=== PATIENT | male | born 1945 | race Caucasian/White ===

== ENCOUNTER → 2016-09-05 | Outpatient (CLI) | payer MEDICARE ==
[2016-09-05 11:31] LABS: CH 31.8; CHCM 32.5; HDW 3.05; HGB 17.2 gm/dL (13.0-17.5); MCH 32.7 pg (25.0-35.0); MCHC 33.1 g/dL (31.0-37.0); MCV 98.6 fL (80.0-100.0); Mean Platelet Volume 8.2; RBC 5.28 m/uL (4.30-5.90); RDW 13.5 % (11.5-15.5); WBC 9.5 k/uL (3.8-10.6)
[2016-09-05 12:14] LABS: Anion Gap 14 mmol/L; Blood Urea Nitrogen 15 mg/dL (9-20); Calcium 9.2 mg/dL (8.4-10.2); Carbon Dioxide 21 mmol/L (22-30); Chloride 106 mmol/L (98-107); Glucose 119 mg/dL (74-99); Non-African American GFR(MDRD) >60 (>60 ml/min/1.73 sqM); Potassium 4.5 mmol/L (3.5-5.1); Sodium 141 mmol/L (137-145)
== END | disposition home or self-care (01) ==
LOC: LABWHC1 10:54
PROVIDERS: ATTEND Internal Medicine Interventional Cardiology
DX: D69.6 Thrombocytopenia, unspecified (principal)
CPT/HCPCS: 36415; 80048; 85027

== ENCOUNTER 2016-09-12 06:24 | Inpatient (IN) | payer MEDICARE ==
[~2016-09-12 06:24] MED LIST: ALPRAZolam 0.25 MG TAB PO PRN; ALPRAZolam 0.5 MG TAB PO PRN; ASPIRIN 325 MG TAB PO STA; ATORVASTATIN 80 MG TAB PO STA; NITROGLYCERIN SL TABS 0.4 MG TAB SUBLINGUAL PRN; SODIUM CHLORIDE 0.9% 1,000 ML in EMPTY BAG 1 BAG IV ONE
[2016-09-12] MEDS ORDERED: IV FLUID CONTINUATION 1,000 ML IV ONE (07:27)
[2016-09-12] MEDS ORDERED: LIDOCAINE 2% INJ 20 MG/ML (20 ML MDV) ONE (07:30)
[2016-09-12] MEDS ORDERED: MIDAZOLAM 2 MG/2 ML VIAL ONE (07:46)
[2016-09-12] MEDS ORDERED: MIDAZOLAM 2 MG/2 ML VIAL IV ONE (07:48)
[2016-09-12] MEDS ORDERED: LIDOCAINE 2% INJ 20 MG/ML SQ ONE (07:50)
[2016-09-12] MEDS ORDERED: METOPROLOL TARTRATE 5 MG/5 ML VIAL IVP ONE ×2 (07:58→08:01)
[2016-09-12] MEDS ORDERED: IOHEXOL 350 MG/ML 100 ML BOTTLE INJ ONE (08:19)
[2016-09-12] MEDS ORDERED: RX INFO: IV CONTRAST WAS GIVEN 1 EACH MISC MISCELLANE PRN (08:33)
[2016-09-12] MEDS ORDERED: SODIUM CHLORIDE 0.9% 1,000 ML IV SCH (08:45)
[2016-09-12] MEDS ORDERED: DEXTROSE 5% IN WATER 100 ML with AMIODARONE 150 MG IV ONE (10:28)
[2016-09-12] MEDS: APIXABAN 5 MG TAB PO SCH ×2 (10:58→20:42)
[2016-09-12] MEDS: FUROSEMIDE 10 MG/ML 4 ML VIAL IV SCH ×2 (10:58→20:42)
[2016-09-12] MEDS: AMIODARONE 450 MG in DEXTROSE 5% IN WATER 250 ML IV SCH ×4 (11:20→17:22)
[2016-09-12] MEDS: LISINOPRIL 5 MG TAB PO SCH (13:25)
--- NOTE | 2016-09-12 13:31 | CC ---
DATE OF SERVICE: September 12, 2016. PERFORMING PHYSICIAN: Karan Underwood M.D., 7th grade teacher. PROCEDURE PERFORMED: 1. Right heart catheterization. 2. Left heart catheterization. 3. Selective right and left coronary angiogram. INDICATION: This is a pleasant 70-year-old gentleman who was experiencing progressive dyspnea and progressive bilateral lower extremity edema. He underwent an echocardiogram as an outpatient and that showed severe cardiomyopathy with an ejection fraction around 20%. He was brought today to undergo a right and left heart catheterization. APPROACH: Right common femoral artery and right common femoral vein. COMPLICATIONS: None. Level of sedation: Moderate. PROCEDURE DESCRIPTION: After obtaining an informed consent, the patient was brought to the cardiac lab director. The right common femoral vein as well as right common femoral artery was cannulated using micropuncture technique, the micropuncture wire passed easily, then I placed a 6 Urdu sheath in the right common femoral artery. An 8 Urdu sheath in the right common femoral vein. After that I did right heart catheterization using a 6 Urdu [place] catheter, which was placed in the venous sheath and advanced all the way to the right chamber including the pulmonary artery as well as pulmonary capillary wedge position. Subsequently I did selective right and left coronary angiogram followed by left heart catheterization. The right and left coronary angiogram was performed using 6 Urdu JR4 and JL4 catheters. The left heart catheterization was performed using ( ) pigtail catheter. The procedure was completed without any complication. SELECTIVE CORONARY ANGIOGRAM: 1. The right coronary artery is a medium caliber vessel and it is a nondominant vessel and has mild disease in the proximal portion. 2. The left main is angiographically normal. It bifurcates into the left circumflex and left anterior descending artery. 3. The left circumflex is a large-caliber vessel and it is a dominant vessel. The proximal left circumflex appeared to have mild disease only and gives rises into the first OM branch, which appeared to be angiographically normally. The mid left circumflex is normal. The left circumflex distally is angiographically normal and bifurcates into PDA and PLV branches; both are angiographically normal. 4. Left anterior descending artery. The proximal LAD appeared to be calcified with mild disease only. The mid LAD appeared to have a plaque in the range of 30%. This is by the bifurcation of the first diagonal branch, which appeared to have mild ostial disease. The LAD distally appeared to be angiographically normal. HEMODYNAMICS: 1. The pulmonary capillary wedge pressure was 27 mmHg. 2. PA pressures were as follows: systolic 37, diastolic 27, mean 33 mmHg. 3. RV pressure were as follows: systolic 31 and end-diastolic of 16 mmHg. 4. RA pressure was 19 mmHg. CONCLUSION: 1. Elevated pulmonary capillary wedge pressure. 2. Elevated left ventricular end-diastolic pressure. 3. Mild nonobstructive coronary artery disease. POSTPROCEDURE MANAGEMENT: 1. Maximize medical treatment. 2. Follow up with the patient.
[2016-09-13] MEDS: AMIODARONE 450 MG in DEXTROSE 5% IN WATER 250 ML IV SCH ×4 (01:32→10:19)
[2016-09-13 07:29] LABS: Anion Gap 13 mmol/L; Blood Urea Nitrogen 34 mg/dL (9-20); Calcium 8.9 mg/dL (8.4-10.2); Carbon Dioxide 23 mmol/L (22-30); Chloride 101 mmol/L (98-107); Glucose 99 mg/dL (74-99); Non-African American GFR(MDRD) >60 (>60 ml/min/1.73 sqM); Potassium 4.4 mmol/L (3.5-5.1); Sodium 137 mmol/L (137-145)
[2016-09-13] MEDS: LISINOPRIL 5 MG TAB PO SCH (09:56)
[2016-09-13] MEDS: APIXABAN 5 MG TAB PO SCH ×2 (09:56→20:32)
[2016-09-13] MEDS: FUROSEMIDE 10 MG/ML 4 ML VIAL IV SCH ×2 (09:56→17:10)
[2016-09-13] MEDS ORDERED: METOPROLOL TARTRATE 25 MG TAB PO SCH (11:30)
[2016-09-13] MEDS ORDERED: AMIODARONE 200 MG TAB PO SCH (11:30)
[2016-09-13 14:34] VITALS: BMI 36.0
--- NOTE | 2016-09-13 16:22 | P.PN ---
Subjective Principal diagnosis: Cardiomyopathy/CHF/atrial fibrillation This is a 70-year-old gentleman who follows with Dr. Mercado in the office. Patient had been noticing progressive bilateral lower extremity edema over the past few weeks and had also been experiencing exertional dyspnea and orthopnea. He underwent an echocardiogram with Doppler study as an outpatient which revealed severe cardiac myopathy with an ejection fraction of 20%. He was brought to the hospital by Dr. Mercado to undergo cardiac catheterization which was performed yesterday. Cardiac catheterization revealed nonobstructive coronary artery disease, decision was made to maximize medical therapy. Patient was admitted to the floor, started on IV Lasix, he was also initiated on IV amiodarone. Currently the patient is on amiodarone 200 mg one tablet by mouth 3 times a day, Eliquis 5 mg one tablet by mouth twice a day, lisinopril 5 mg daily, metoprolol tartrate 25 mg one tablet by mouth twice a day. Patient has been diuresing a significant amount, his weight today is not's reflective of this. Feel that his breathing is improving, edema is mildly less today. I pressure 115/70, heart rate earlier in the 100 range, at the time of my examination back up into the 140-150 range. We will increase patient's metoprolol tartrate 50 mg twice a day, given additional 50 mg now. Continue IV Lasix, increasing it to every 8 hourly. We will also add Lanoxin to his medication regime. Continue to monitor intake and output along with daily weights. Once the patient is stable from a heart failure perspective, elective cardioversion will be considered. Objective - Vital Signs Vital signs: Vital Signs Temp 97 F L 09/13/16 11:05 Pulse 150 H 09/13/16 12:00 Resp 24 09/13/16 12:00 BP 115/71 09/13/16 11:05 Pulse Ox 95 09/13/16 11:05 Intake & Output 09/12/16 09/13/16 09/13/16 18:59 06:59 18:59 Intake Total 1752.756 215.244 Output Total 1350 1550 Balance 402.756 -1334.756 Weight 117.934 kg 120.5 kg 120.5 kg Intake: IV 825 164 Amiodarone 450 mg In 64 Dextrose 5% in Water 250 ml @ 1 MG/MIN 34.53 mls/ hr IV .Q7H31M ANTELMO Rx#: [id number] Sodium Chloride 0.9% 1, 75 100 000 ml @ 75 mls/hr IV . [id number] ANTELMO Rx#:[id number] Intake, IV Titration 207.756 51.244 Amount Amiodarone 450 mg In 207.756 51.244 Dextrose 5% in Water 250 ml @ 1 MG/MIN 34.53 mls/ hr IV .Q7H31M ANTELMO Rx#: [id number] Oral 720 Output: Urine 1350 1550 Other: # Voids 1 - Exam PHYSICAL EXAMINATION: HEENT: Head is atraumatic, normocephalic. Pupils equal, round. Neck is supple. There is elevated jugular venous pressure. HEART EXAMINATION: S1 and S2 irregularly irregular, systolic murmur heard CHEST EXAMINATION:'s reveal fine rales to bilateral bases. ABDOMEN: Soft, obese, nontender. Bowel sounds are heard. No organomegaly noted. EXTREMITIES: 2+ peripheral pulses with 1-2+ no evidence of peripheral edema and no calf tenderness noted. NEUROLOGIC patient is awake, alert and oriented -3. . - Labs CBC & Chem 7: 09/13/16 06:22 Labs: Abnormal Lab Results - Last 24 Hours (Table) 09/13/16 Range/Units 06:22 BUN 34 H (9-20) mg/dL Assessment and Plan (1) NICM (nonischemic cardiomyopathy) Status: Acute (2) Systolic CHF, acute on chronic Status: Acute (3) HTN (hypertension) Status: Acute (4) Paroxysmal a-fib Status: Acute (5) S/P cardiac cath Status: Acute Plan: From cardiology's perspective, we will give the patient IV Lanoxin today and start him on oral tomorrow. Increase dose of beta stevo, increase IV Lasix dose. Continue to monitor intake and output along with daily weights. Once the patient is stable from a heart failure perspective we will consider elective cardioversion. DNP note has been reviewed, I agree with a documented findings and plan of care. Patient was seen and examined.
[2016-09-13] MEDS: DIGOXIN 250 MCG/ML 2 ML AMP IVP SCH (17:09)
[2016-09-13] MEDS: METOPROLOL TARTRATE 50 MG TAB PO SCH (20:32)
[2016-09-13] MEDS: AMIODARONE 200 MG TAB PO SCH (20:32)
[2016-09-14] MEDS: FUROSEMIDE 10 MG/ML 4 ML VIAL IV SCH ×4 (00:30→23:00)
[2016-09-14] MEDS: DIGOXIN 250 MCG/ML 2 ML AMP IVP SCH (00:58)
[2016-09-14] MEDS: DIGOXIN 250 MCG TAB PO SCH (08:34)
[2016-09-14] MEDS: AMIODARONE 200 MG TAB PO SCH ×3 (08:34→21:40)
[2016-09-14] MEDS: APIXABAN 5 MG TAB PO SCH ×2 (08:34→21:40)
[2016-09-14] MEDS: METOPROLOL TARTRATE 50 MG TAB PO SCH ×2 (08:36→21:40)
[2016-09-14] MEDS: LISINOPRIL 5 MG TAB PO SCH (08:36)
[2016-09-14 16:17] LABS: Anion Gap 10 mmol/L; Blood Urea Nitrogen 30 mg/dL (9-20); Calcium 8.4 mg/dL (8.4-10.2); Carbon Dioxide 28 mmol/L (22-30); Chloride 99 mmol/L (98-107); Glucose 83 mg/dL (74-99); Non-African American GFR(MDRD) >60 (>60 ml/min/1.73 sqM); Potassium 4.1 mmol/L (3.5-5.1); Sodium 137 mmol/L (137-145)
[2016-09-15 06:30] LABS: Anion Gap 8 mmol/L; Blood Urea Nitrogen 24 mg/dL (9-20); Calcium 8.6 mg/dL (8.4-10.2); Carbon Dioxide 28 mmol/L (22-30); Chloride 102 mmol/L (98-107); Glucose 86 mg/dL (74-99); Non-African American GFR(MDRD) >60 (>60 ml/min/1.73 sqM); Sodium 138 mmol/L (137-145)
[2016-09-15] MEDS: METOPROLOL TARTRATE 50 MG TAB PO SCH ×2 (07:41→21:43)
[2016-09-15] MEDS: FUROSEMIDE 10 MG/ML 4 ML VIAL IV SCH ×3 (07:41→23:49)
[2016-09-15] MEDS: APIXABAN 5 MG TAB PO SCH ×2 (07:41→21:43)
[2016-09-15] MEDS: AMIODARONE 200 MG TAB PO SCH ×3 (07:41→21:44)
[2016-09-15] MEDS: DIGOXIN 250 MCG TAB PO SCH (07:41)
[2016-09-15] MEDS: LISINOPRIL 5 MG TAB PO SCH (07:41)
--- NOTE | 2016-09-15 15:32 | XR ---
EXAMINATION TYPE: XR chest 2V DATE OF EXAM: 09/15/2016 3:26 PM COMPARISON: NONE INDICATION: CHF TECHNIQUE: Single frontal view of the chest is obtained. FINDINGS: The heart size is normal. The pulmonary vasculature is normal. There is a posterior pleural effusion likely larger on the left than the right. IMPRESSION: 1. Posterior pleural effusions
--- NOTE | 2016-09-15 16:06 | P.PN ---
Subjective Principal diagnosis: Cardiomyopathy/CHF/atrial fibrillation This is a 70-year-old gentleman who follows with Dr. Mercado in the office. Patient had been noticing progressive bilateral lower extremity edema over the past few weeks and had also been experiencing exertional dyspnea and orthopnea. He underwent an echocardiogram with Doppler study as an outpatient which revealed severe cardiac myopathy with an ejection fraction of 20%. He was brought to the hospital by Dr. Mercado to undergo cardiac catheterization which was performed yesterday. Cardiac catheterization revealed nonobstructive coronary artery disease, decision was made to maximize medical therapy. Patient was admitted to the floor, started on IV Lasix, he was also initiated on IV amiodarone. Currently the patient is on amiodarone 200 mg one tablet by mouth 3 times a day, Eliquis 5 mg one tablet by mouth twice a day, lisinopril 5 mg daily, metoprolol tartrate 25 mg one tablet by mouth twice a day. Patient has been diuresing a significant amount, his weight is down 3 kg. Feels that his breathing is improving, edema is less today. Blood pressure 110/60, heart rate in the 80s. We'll discontinue the IV Lasix today, put the patient on oral diuretics. We will also discuss with Dr. Mercado regarding scheduling EDUARDO and cardioversion. Objective - Vital Signs Vital signs: Vital Signs Temp 97 F L 09/15/16 15:39 Pulse 96 09/15/16 15:39 Resp 16 09/15/16 15:39 BP 111/56 09/15/16 15:39 Pulse Ox 97 09/15/16 15:39 Intake & Output 09/14/16 09/15/16 09/15/16 18:59 06:59 18:59 Intake Total 760 400 240 Output Total 2900 1850 800 Balance -2140 -1450 -560 Weight 114.6 kg Intake: Oral 760 400 240 Output: Urine 2900 1850 800 Other: # Voids 1 - Exam PHYSICAL EXAMINATION: HEENT: Head is atraumatic, normocephalic. Pupils equal, round. Neck is supple. There is elevated jugular venous pressure. HEART EXAMINATION: S1 and S2 irregularly irregular, systolic murmur heard CHEST EXAMINATION: Lungs are clear to auscultation. ABDOMEN: Soft, obese, nontender. Bowel sounds are heard. No organomegaly noted. EXTREMITIES: 2+ peripheral pulses with 1-2+ no evidence of peripheral edema and no calf tenderness noted. NEUROLOGIC patient is awake, alert and oriented -3. . - Labs CBC & Chem 7: 09/15/16 05:58 Labs: Abnormal Lab Results - Last 24 Hours (Table) 09/14/16 09/15/16 Range/Units 15:22 05:58 BUN 30 H 24 H (9-20) mg/dL Assessment and Plan (1) NICM (nonischemic cardiomyopathy) Status: Acute (2) Systolic CHF, acute on chronic Status: Acute (3) HTN (hypertension) Status: Acute (4) Paroxysmal a-fib Status: Acute (5) S/P cardiac cath Status: Acute Plan: From cardiology's perspective, we'll obtain a chest x-ray today. We will also discontinue the IV Lasix and initiate oral diuretics. We will speak with Dr. Mercado regarding scheduling EDUARDO and cardioversion. Further recommendations to follow. DNP note has been reviewed, I agree with a documented findings and plan of care. Patient was seen and examined.
[2016-09-16 01:42] VITALS: RESP 16
[2016-09-16 06:42] LABS: Basophils # (A) 0.1 k/uL (0-0.2); Basophils % (A) 1 %; CH 32.9; Eosinophils # (A) 0.3 k/uL (0-0.7); Eosinophils % (A) 3 %; HCT 49.4 % (39.0-53.0); HDW 3.29; HGB 17.1 gm/dL (13.0-17.5); Luc % (Auto) 3; Lymphocytes # (A) 3.3 k/uL (1.0-4.8); Lymphocytes % (A) 35 %; MCH 32.8 pg (25.0-35.0); MCHC 34.6 g/dL (31.0-37.0); MCV 94.6 fL (80.0-100.0); Monocytes # (A) 0.8 k/uL (0-1.0); Monocytes % (A) 8 %; Neutrophils # (A) 4.7 k/uL (1.3-7.7); Neutrophils % (A) 50 %; RBC 5.23 m/uL (4.30-5.90); RDW 13.8 % (11.5-15.5); WBC 9.4 k/uL (3.8-10.6); WBC (Perox) 9.32
[2016-09-16] MEDS: AMIODARONE 200 MG TAB PO SCH (09:19)
[2016-09-16] MEDS: LISINOPRIL 5 MG TAB PO SCH (09:19)
[2016-09-16] MEDS: APIXABAN 5 MG TAB PO SCH (09:19)
[2016-09-16] MEDS: DIGOXIN 250 MCG TAB PO SCH (09:19)
[2016-09-16] MEDS: FUROSEMIDE 10 MG/ML 4 ML VIAL IV SCH (09:19)
[2016-09-16] MEDS: METOPROLOL TARTRATE 50 MG TAB PO SCH (09:20)
[2016-09-16 12:01] VITALS: BP 105/70; PULSE 85; TEMP 97
--- NOTE | 2016-09-16 14:38 | P.DS ---
Providers Date of admission: 09/14/16 08:12 Attending physician: Karan Underwood Primary care physician: [facility] Course: This is a 70-year-old gentleman who follows with Dr. Underwood in the office. She had been noticing progressive bilateral lower extremity edema over the past few weeks and has also been exertional dyspnea and orthopnea. She was recently found to have atrial fibrillation. He underwent an echocardiogram with Doppler study as an outpatient which revealed severe cardiomyopathy with an ejection fraction of 20%. He was brought to the hospital by Dr. Mercado to undergo cardiac catheterization which was performed on the day of admission. Cardiac catheterization revealed nonobstructive coronary artery disease and the decision was made to maximize medical therapy. Patient was admitted to the floor and started on IV Lasix as well as amiodarone. Later the patient is on amiodarone 200 mg by mouth 3 times a day, ELiquis 5 milligrams by mouth twice a day, lisinopril 5 mg by mouth daily and metoprolol tartrate 50 mg by mouth twice a day. Patient was seen and examined today patient has been diuresing well with pressure and heart rate are well controlled. The plan is for the patient to follow up outpatient and schedule cardioversion as an outpatient. Plan - Discharge Summary New Discharge Prescriptions: Amiodarone [Cordarone] 200 mg PO TID #90 tab Digoxin [Lanoxin] 250 mcg PO DAILY #90 tab Furosemide [Lasix] 80 mg PO BID@0900,1600 #180 tab Metoprolol Tartrate [Lopressor] 50 mg PO BID #180 tab Nitroglycerin Sl Tabs [Nitrostat] 0.4 mg SUBLINGUAL Q5M PRN #25 tab PRN Reason: Chest Pain Discharge Medication List Apixaban [Eliquis] 5 mg PO BID 09/09/16 [History] Lisinopril [Zestril] 5 mg PO QAM 09/09/16 [History] Amiodarone [Cordarone] 200 mg PO TID #90 tab 09/16/16 [Rx] Digoxin [Lanoxin] 250 mcg PO DAILY #90 tab 09/16/16 [Rx] Furosemide [Lasix] 80 mg PO BID@0900,1600 #180 tab 09/16/16 [Rx] Metoprolol Tartrate [Lopressor] 50 mg PO BID #180 tab 09/16/16 [Rx] Nitroglycerin Sl Tabs [Nitrostat] 0.4 mg SUBLINGUAL Q5M PRN #25 tab 09/16/16 [Rx ] Follow up Appointment(s)/Referral(s): Karan Underwood MD [STAFF PHYSICIAN] - 09/20/16 1:00 pm [facility] Visiting Nurse, [NON-STAFF] - Patient Instructions/Handouts: *Surgery [facility] - After Heart Catheterization - Square Cutter Instructions, Atrial Fibrillation (DC), Transesophageal Echocardiogram (DC), Heart Healthy Diet (DC), Low Sodium Diet (DC), Cardiac Rehabilitation (DC), Safe Use of Anticoagulants (DC), Heart Catheterization (DC) , Cardioversion (DC), Heart Failure (ED)
[2016-09-16] MEDS ORDERED: FUROSEMIDE 80 MG TAB PO SCH (16:00)
== END 2016-09-16 15:40 | disposition home health service (06) | DRG 286 ==
LOC: CATHCVL 06:24 → 6SEL 08:20 → CATHCVL 09-14 08:12
PROVIDERS: ADMIT Internal Medicine Interventional Cardiology; ATTEND Internal Medicine Interventional Cardiology
PROC: 4A023N8 Measurement of Cardiac Sampling and Pressure, Bilateral, Percutaneous Approach (ICD-10-PCS; principal; 2016-09-12 07:27)
PROC: B2111ZZ Fluoroscopy of Multiple Coronary Arteries using Low Osmolar Contrast (ICD-10-PCS; principal; 2016-09-12 07:27)
DX: I48.0 Paroxysmal atrial fibrillation (principal); I50.23 Acute on chronic systolic (congestive) heart failure; I11.0 Hypertensive heart disease with heart failure; I42.9 Cardiomyopathy, unspecified; I25.10 Atherosclerotic heart disease of native coronary artery without angina pectoris; Z79.01 Long term (current) use of anticoagulants; Z79.899 Other long term (current) drug therapy
CPT/HCPCS: 71020; 80048; 85025; 93460

== ENCOUNTER → 2017-02-27 | Outpatient (CLI) | payer MEDICARE ==
[2017-02-27 12:34] LABS: CH 33.4; CHCM 34.9; HCT 44.2 % (39.0-53.0); HDW 2.76; MCH 32.6 pg (25.0-35.0); MCHC 33.9 g/dL (31.0-37.0); MCV 96.2 fL (80.0-100.0); Mean Platelet Volume 6.9; RBC 4.59 m/uL (4.30-5.90); RDW 12.5 % (11.5-15.5); WBC 14.3 k/uL (3.8-10.6)
[2017-02-27 12:48] LABS: ALT 41 U/L (21-72); AST 23 U/L (17-59); Alkaline Phosphatase 73 U/L (38-126); Anion Gap 12 mmol/L; Bilirubin, Delta 0.2 mg/dL (0.0-0.2); Blood Urea Nitrogen 17 mg/dL (9-20); Calcium 9.3 mg/dL (8.4-10.2); Carbon Dioxide 25 mmol/L (22-30); Chloride 102 mmol/L (98-107); Glucose 104 mg/dL (74-99); Non-African American GFR(MDRD) >60 (>60 ml/min/1.73 sqM); Potassium 4.6 mmol/L (3.5-5.1); Sodium 139 mmol/L (137-145); Total Bilirubin 0.7 mg/dL (0.2-1.3); Total Protein 7.2 g/dL (6.3-8.2)
== END | disposition home or self-care (01) ==
LOC: LABWHC1 11:54
PROVIDERS: ATTEND Internal Medicine Interventional Cardiology
DX: N18.9 Chronic kidney disease, unspecified (principal)
CPT/HCPCS: 36415; 80048; 80076; 85027

== ENCOUNTER → 2017-11-23 | Outpatient (CLI) | payer MEDICARE ==
[2017-11-23 09:04] LABS: Basophils # (A) 0.1 k/uL (0-0.2); Basophils % (A) 1 %; Eosinophils # (A) 0.5 k/uL (0-0.7); Eosinophils % (A) 5 %; HCT 42.4 % (39.0-53.0); HGB 14.3 gm/dL (13.0-17.5); Lymphocytes # (A) 4.5 k/uL (1.0-4.8); Lymphocytes % (A) 39 %; MCH 31.2 pg (25.0-35.0); MCHC 33.8 g/dL (31.0-37.0); MCV 92.3 fL (80.0-100.0); Mean Platelet Volume 6.7; Monocytes # (A) 0.8 k/uL (0-1.0); Monocytes % (A) 7 %; Neutrophils # (A) 5.4 k/uL (1.3-7.7); Neutrophils % (A) 46 %; Platelet Count 416 k/uL (150-450); RBC 4.59 m/uL (4.30-5.90); RDW 13.1 % (11.5-15.5); WBC 11.7 k/uL (3.8-10.6)
[2017-11-23 09:34] LABS: T4, Free (Free Thyroxine) 1.02 ng/dL (0.78-2.19)
== END | disposition home or self-care (01) ==
LOC: LABWHC1 08:09
PROVIDERS: ATTEND Internal Medicine
DX: E03.9 Hypothyroidism, unspecified (principal); D69.3 Immune thrombocytopenic purpura; I48.0 Paroxysmal atrial fibrillation; I25.10 Atherosclerotic heart disease of native coronary artery without angina pectoris
CPT/HCPCS: 36415; 84439; 84443; 85025

== ENCOUNTER → 2018-06-21 | Outpatient (CLI) | payer MEDICARE ==
--- NOTE | 2018-06-21 12:17 | XR ---
EXAMINATION TYPE: XR wrist complete LT DATE OF EXAM: 06/21/2018 CLINICAL HISTORY: Left wrist injury and pain after a fall TECHNIQUE: Frontal, lateral and oblique images of the left wrist are obtained. COMPARISON: None FINDINGS: There appears to be subacute fracture of the distal radius with intra-articular extent on t he lateral view and without comminution or displacement. This appears to be subacute as there is mild periosteal reaction seen medially over the distal radial metaphysis. Volar soft tissue swelling kei ins. No additional fracture of the left wrist is seen. IMPRESSION: Likely subacute nondisplaced intra-articular known comminuted fracture of the distal radi us as there appears to be mild periosteal reaction medially although there is volar soft tissue swell ing. Orthopedic consultation is recommended.
== END | disposition home or self-care (01) ==
LOC: RADXRMAIN 10:55
PROVIDERS: ATTEND Internal Medicine
DX: S69.92XA Unspecified injury of left wrist, hand and finger(s), initial encounter (principal)

== ENCOUNTER → 2018-11-03 | Outpatient (CLI) | payer MEDICARE ==
[2018-11-03 10:23] LABS: Basophils # (A) 0.1 k/uL (0-0.2); Basophils % (A) 1 %; Eosinophils # (A) 0.4 k/uL (0-0.7); Eosinophils % (A) 3 %; HCT 40.4 % (39.0-53.0); Lymphocytes # (A) 5.1 k/uL (1.0-4.8); Lymphocytes % (A) 43 %; MCH 31.3 pg (25.0-35.0); MCHC 34.5 g/dL (31.0-37.0); MCV 90.5 fL (80.0-100.0); Mean Platelet Volume 6.7; Monocytes # (A) 0.8 k/uL (0-1.0); Monocytes % (A) 6 %; Neutrophils # (A) 5.1 k/uL (1.3-7.7); Neutrophils % (A) 44 %; Platelet Count 482 k/uL (150-450); RBC 4.47 m/uL (4.30-5.90); RDW 12.8 % (11.5-15.5); WBC 11.8 k/uL (3.8-10.6)
[2018-11-03 16:50] LABS: Anion Gap 9.9 mmol/L (4.00-12.00); Carbon Dioxide 25.1 mmol/L (21.6-31.8); LDL Cholesterol,Calculated 88.2 mg/dL (0.0-131.0); Potassium 4.3 mmol/L (3.5-5.5); VLDL Calculation 13.8 mg/dL (5.00-40.00)
[2018-11-03 16:51] LABS: Albumin 4.2 g/dL (3.80-4.90); Albumin/Globulin Ratio 1.75 (1.60-3.17); Calcium 9.2 mg/dL (8.7-10.3); Globulin 2.4 g/dL (1.6-3.3); Total Bilirubin 0.9 mg/dL (0.3-1.2); Total Protein 6.6 g/dL (6.2-8.2)
[2018-11-03 16:57] LABS: T4, Free (Free Thyroxine) 1.2 ng/dL (0.80-1.80)
[2018-11-03 20:29] LABS: Hemoglobin A1C 5.3 % (4.0-6.0)
== END | disposition home or self-care (01) ==
LOC: LABWHC1 09:35
PROVIDERS: ATTEND Internal Medicine
DX: Z00.00 Encounter for general adult medical examination without abnormal findings (principal); E78.5 Hyperlipidemia, unspecified; I10 Essential (primary) hypertension; Z12.5 Encounter for screening for malignant neoplasm of prostate
CPT/HCPCS: 36415; 80053; 80061; 83036; 84153; 84439; 84443; 85025

== ENCOUNTER → 2020-03-18 | Outpatient (CLI) | payer MEDICARE ==
[2020-03-18 11:22] LABS: Basophils # (A) 0.1 k/uL (0-0.2); Basophils % (A) 1 %; Eosinophils # (A) 0.3 k/uL (0-0.7); Eosinophils % (A) 2 %; HCT 45.9 % (39.0-53.0); HGB 15.5 gm/dL (13.0-17.5); Lymphocytes % (A) 51 %; MCH 31.7 pg (25.0-35.0); MCHC 33.7 g/dL (31.0-37.0); Monocytes # (A) 0.9 k/uL (0-1.0); Monocytes % (A) 8 %; Neutrophils # (A) 4.2 k/uL (1.3-7.7); Neutrophils % (A) 35 %; Platelet Count 382 k/uL (150-450); RBC 4.89 m/uL (4.30-5.90); RDW 12.4 % (11.5-15.5); WBC 11.8 k/uL (3.8-10.6)
[2020-03-18 20:37] LABS: Hemoglobin A1C 5.1 % (4.0-6.0)
[2020-03-18 21:42] LABS: African American GFR (CKD) 86.2 (60.0-200.0); Albumin 4.4 g/dL (3.80-4.90); Albumin/Globulin Ratio 1.69 (1.60-3.17); Anion Gap 8.6 mmol/L (4.00-12.00); Calcium 9.5 mg/dL (8.7-10.3); Carbon Dioxide 25.4 mmol/L (21.6-31.8); Chol/HDL Ratio 4.46; Globulin 2.6 g/dL (1.6-3.3); LDL Cholesterol,Calculated 123.8 mg/dL (0.0-131.0); Non-African American GFR(CKD) 74.3 (60.0-200.0); Potassium 4.4 mmol/L (3.5-5.5); Total Bilirubin 1.4 mg/dL (0.2-1.2); VLDL Calculation 18.2 mg/dL (5.00-40.00)
[2020-03-18 21:49] LABS: T4, Free (Free Thyroxine) 1.3 ng/dL (0.80-1.80)
== END | disposition home or self-care (01) ==
LOC: LABWHC1 09:51
PROVIDERS: ATTEND Internal Medicine
DX: Z00.00 Encounter for general adult medical examination without abnormal findings (principal); Z12.5 Encounter for screening for malignant neoplasm of prostate; E78.5 Hyperlipidemia, unspecified; I10 Essential (primary) hypertension
CPT/HCPCS: 36415; 80053; 80061; 83036; 84153; 84439; 84443; 85025

== ENCOUNTER → 2022-06-16 | Outpatient (CLI) | payer MEDICARE ==
[2022-06-17 00:49] LABS: HCT 42.4 % (39.6-50.0); HGB 14.6 g/dL (13.0-17.0); MCH 31.6 pg (27.0-32.0); MCHC 34.4 g/dL (32.0-37.0); MCV 91.8 fL (80.0-97.0); Mean Platelet Volume 10.6 fL (9.5-12.2); NRBC Per 100 WBC 0 /100 WBCS (0.0-0.0); Platelet Count 385 X 10*3/uL (140-440); RBC 4.62 X 10*6/uL (4.40-5.60); RDW 13.7 % (11.5-14.5); WBC 12.31 X 10*3/uL (4.50-10.00)
[2022-06-17 03:43] LABS: African American GFR (CKD) 82.9 (60.0-200.0); Carbon Dioxide 21.7 mmol/L (20.0-27.5); Non-African American GFR(CKD) 71.6 (60.0-200.0); Potassium 4.2 mmol/L (3.5-5.5)
== END | disposition home or self-care (01) ==
LOC: LABPAT 14:28
PROVIDERS: ATTEND Internal Medicine Interventional Cardiology
DX: Z01.812 Encounter for preprocedural laboratory examination (principal); I34.0 Nonrheumatic mitral (valve) insufficiency
CPT/HCPCS: 80051; 82565; 84520; 85027

== ENCOUNTER 2022-09-20 08:59 | Day surgery (SDC) | payer MEDICARE ==
[2022-09-14 12:09] VITALS: BMI 32.3
[~2022-09-20 08:59] MED LIST changes: +ASPIRIN 325 MG TAB PO ONE; -ASPIRIN 325 MG TAB PO STA; -ATORVASTATIN 80 MG TAB PO STA; -SODIUM CHLORIDE 0.9% 1,000 ML in EMPTY BAG 1 BAG IV ONE
[2022-09-20] MEDS: SODIUM CHLORIDE 0.9% 1,000 ML in EMPTY BAG 1 BAG IV SCH ×3 (09:06→21:40)
[2022-09-20] MEDS ORDERED: SODIUM CHLORIDE 0.9% 1,000 ML IV ONE ×2 (09:12→15:00)
[2022-09-20] MEDS ORDERED: MIDAZOLAM 2 MG/2 ML VIAL IV ONE (10:34)
[2022-09-20] MEDS ORDERED: LIDOCAINE 1% INJ 10MG/ML (20 ML MDV) SQ ONE (10:36)
[2022-09-20] MEDS ORDERED: VERAPAMIL SYRINGE (5 MG/10 ML) INTRAARTER ONE (10:38)
[2022-09-20] MEDS: HEPARIN SODIUM 1,000 UN/ML (10ML VL) IV ONE ×2 (10:40→11:08)
[2022-09-20] MEDS ORDERED: CLOPIDOGREL 75 MG TAB PO ONE (10:49)
[2022-09-20] MEDS ORDERED: niCARdipine Syringe (1,000 mcg/10 mL) INTRACORON ONE (11:01)
[2022-09-20] MEDS ORDERED: IOPAMIDOL-370 200ML BTL INJ ONE (11:04)
[2022-09-20] MEDS ORDERED: RX INFO: IV CONTRAST WAS GIVEN 1 EACH MISC MISCELLANE PRN ×2 (11:09→11:11)
[2022-09-20] MEDS ORDERED: ZOLPIDEM 5 MG TAB PO PRN ×2 (11:09→11:11)
[2022-09-20] MEDS ORDERED: NITROGLYCERIN SL TABS 0.4 MG TAB SUBLINGUAL PRN ×2 (11:09→11:11)
[2022-09-20] MEDS ORDERED: MAG HYDROX/AL HYDROX/SIMETH 30 ML CUP PO PRN ×2 (11:09→11:11)
[2022-09-20] MEDS ORDERED: ATROPINE SULFATE 0.1 MG/ML 10ML SYRINGE IV PRN ×2 (11:09→11:11)
[2022-09-20] MEDS ORDERED: SODIUM CHLORIDE 0.9% 1,000 ML in EMPTY BAG 1 BAG IV SCH (11:15)
--- NOTE | 2022-09-20 11:17 | P.PCN ---
Date of Procedure: 09/20/22 Operative Findings: PERCUTANEOUS CORONARY INTERVENTION Performing physician Karan Underwood M.D. Procedure Performed: 1. Successful stenting of the mid LAD using 3.25 x 23 mm Xience drug-eluting stent with an excellent angiographic results with adjunctive use of intravascular ultrasound. Indication: This is a 76-year-old gentleman who was diagnosed recently with severe coronary artery disease involving the LAD and also severe mitral regurgitation. He refused open heart surgery at this point and he would like to go with PCI of the LAD. He was seen and evaluated by The thoracic surgeon. Approach: Right radial artery Complications: None Level of Sedation: Moderate with a sedation length of 27 minutes Procedure Discussion: After obtaining an informed consent the patient was brought to cardiac laboratory machinist. The right radial artery was cannulated using micropuncture technique, the micropuncture wire passed easily then I placed a 6-Spanish sheath. I gave the patient 2 mg of verapamil intra-arterial and 6000 use of heparin intravenous. After that I did engage the left main using JL 3.5 guiding catheter. I did wire the LAD using a run-through wire. Intravascular ultrasound was performed and showed a diameter of the LAD around 3.25 mm. I did predilatation using 3.0 mm balloon before I deployed 3.25 x 23 mm stent where the stent was positioned under fluoroscopy guidance and deployed under its nominal pressure. After that I postdilated using 3.5 mm noncompliant balloon. Final angiogram was performed and showed excellent angiographic results and the procedure was completed was no complication Postprocedure Management: 1. Dual antiplatelet therapy using aspirin and Plavix for 6 months 2. Aggressive cholesterol control 3. Risk factors modification
[2022-09-20] MEDS: FUROSEMIDE 40 MG TAB PO SCH (16:15)
[2022-09-20] MEDS ORDERED: ACETYLCYSTEINE 800 MG/4 ML VIAL PO SCH (21:00)
[2022-09-20] MEDS ORDERED: QUERCETIN WITH BROMELAIN PO SCH (21:00)
[2022-09-21] MEDS ORDERED: LEVOTHYROXINE 25 MCG TAB PO SCH (06:30)
[2022-09-21 08:17] VITALS: BP 111/63; PULSE 74; RESP 16; TEMP 98
[2022-09-21 08:17] LABS: African American GFR (CKD) >90 (>60 ml/min/1.73 sqM); Non-African American GFR(CKD) 89 (>60 ml/min/1.73 sqM)
[2022-09-21 08:20] LABS: African American GFR (CKD) >90 (>60 ml/min/1.73 sqM); Anion Gap 7 mmol/L; Blood Urea Nitrogen 16 mg/dL (9-20); Calcium 8.9 mg/dL (8.4-10.2); Carbon Dioxide 26 mmol/L (22-30); Chloride 102 mmol/L (98-107); Glucose 96 mg/dL (74-99); Non-African American GFR(CKD) 90 (>60 ml/min/1.73 sqM); Potassium 4.4 mmol/L (3.5-5.1); Sodium 135 mmol/L (137-145)
[2022-09-21] MEDS: FUROSEMIDE 40 MG TAB PO SCH (08:36)
[2022-09-21] MEDS ORDERED: lisinopriL 5 MG TAB PO SCH (09:00)
[2022-09-21] MEDS ORDERED: RIVAROXABAN 15 MG TAB PO SCH (09:00)
[2022-09-21] MEDS ORDERED: METOPROLOL SUCCINATE (ER) 25 MG TAB.ER.24H PO SCH (09:00)
[2022-09-21] MEDS ORDERED: ASCORBIC ACID 500 MG TAB PO SCH (09:00)
[2022-09-21] MEDS ORDERED: SPIRONOLACTONE 25 MG TAB PO SCH (09:00)
[2022-09-21] MEDS ORDERED: CLOPIDOGREL 75 MG TAB PO SCH ×2 (09:00)
[2022-09-21] MEDS ORDERED: ASPIRIN 81 MG PO SCH (09:00)
[2022-09-21] MEDS ORDERED: ZINC SULFATE 220 MG CAP PO SCH (09:00)
[2022-09-21 09:05] LABS: Basophils # (A) 0.1 k/uL (0-0.2); Basophils % (A) 1 %; Eosinophils # (A) 0.1 k/uL (0-0.7); Eosinophils % (A) 1 %; HCT 40.8 % (39.0-53.0); HGB 14.4 gm/dL (13.0-17.5); Lymphocytes # (A) 4.5 k/uL (1.0-4.8); Lymphocytes % (A) 43 %; MCH 32.1 pg (25.0-35.0); MCHC 35.3 g/dL (31.0-37.0); MCV 90.8 fL (80.0-100.0); Monocytes # (A) 0.8 k/uL (0-1.0); Monocytes % (A) 8 %; Neutrophils # (A) 4.8 k/uL (1.3-7.7); Neutrophils % (A) 45 %; Platelet Count 306 k/uL (150-450); RBC 4.49 m/uL (4.30-5.90); RDW 12.6 % (11.5-15.5); WBC 10.5 k/uL (3.8-10.6)
--- NOTE | 2022-09-21 10:16 | P.DS ---
Providers Attending physician: Karan Underwood Consults: 09/20/22 11:09 Consult Physician Routine Consulting Provider: Cardiology Pedro Consult Reason/Comments: Post Interventional patient Do you want consulting provider notified?: Already Contacted 09/20/22 11:12 Consult Physician Routine Consulting Provider: Ro Vasquez Consult Reason/Comments: Post Interventional Patient Do you want consulting provider notified?: Already Contacted Primary care physician: Sho Martin Hospital Course: This is a 76-year-old male who was recently diagnosed with severe coronary artery disease involving LAD and also severe mitral regurgitation. Patient currently declining to have open-heart surgery and decided to proceed with PCI of the LAD. He underwent cardiac catheterization yesterday with Dr. Mercado with stenting of the mid LAD with drug-eluting stent. Patient is doing well postprocedure. He denies any chest pain or pressure. Denies any shortness of breath. Vital signs are stable. The patient was deemed stable for discharge home today. Please see EMR for further hospital course details. The patient will be discharged home on aspirin, Plavix, and Xarelto per Dr. Underowod. Discharge diagnosis Coronary artery disease, status post stenting of mid LAD Severe mitral regurgitation Nurse practitioner note has been reviewed by physician. Signing provider agrees with the documented findings, assessment, and plan of care. Plan - Discharge Summary Discharge Rx Participant: Yes New Discharge Prescriptions: New Aspirin 81 mg PO DAILY #30 tab Clopidogrel [Plavix] 75 mg PO DAILY #90 tablet Continue Rivaroxaban [Xarelto] 15 mg PO DAILY Discontinued Acetylcysteine [Nac] 600 mg PO BID No Action lisinopriL [Zestril] 5 mg PO QAM Furosemide [Lasix] 40 mg PO BID@0900,1600 Zinc Gluconate [Zinc] 50 mg PO DAILY Spironolactone [Aldactone] 12.5 mg PO DAILY Quercetin With Bromelain 1 tab PO BID Metoprolol Succinate (ER) [Toprol XL] 25 mg PO DAILY Levothyroxine Sodium [Synthroid] 25 mcg PO DAILY Ascorbic Acid [Vitamin C] 1,000 mg PO DAILY Discharge Medication List lisinopriL [Zestril] 5 mg PO QAM 09/09/16 [History] Ascorbic Acid [Vitamin C] 1,000 mg PO DAILY 06/16/22 [History] Furosemide [Lasix] 40 mg PO BID@0900,1600 06/16/22 [History] Levothyroxine Sodium [Synthroid] 25 mcg PO DAILY 06/16/22 [History] Metoprolol Succinate (ER) [Toprol XL] 25 mg PO DAILY 06/16/22 [History] Quercetin With Bromelain 1 tab PO BID 06/16/22 [History] Rivaroxaban [Xarelto] 15 mg PO DAILY 06/16/22 [History] Spironolactone [Aldactone] 12.5 mg PO DAILY 06/16/22 [History] Zinc Gluconate [Zinc] 50 mg PO DAILY 06/16/22 [History] Aspirin 81 mg PO DAILY #30 tab 09/21/22 [Rx] Clopidogrel [Plavix] 75 mg PO DAILY #90 tablet 09/21/22 [Rx] Follow up Appointment(s)/Referral(s): Karan Underwood MD [STAFF PHYSICIAN] - 1 Week (APPOINTMENT MADE ON September @ 4:00PM ) Patient Instructions/Handouts: Moderate Sedation (DC), Cardiac Rehabilitation (ED), Coronary Intravascular Stent Placement (DC), After Radial Heart Catheterization (GEN) Activity/Diet/Wound Care/Special Instructions: *NO LIFTING, PUSHING, OR PULLING ANYTHING OVER 5 POUNDS FOR 5 DAYS *NO DRIVING FOR 3 DAYS *YOU CAN REMOVE YOUR DRESSING AND SHOWER TOMORROW BUT DO NOT SUBMERSE YOUR PUNCTURE SITE IN WATER FOR A FEW DAYS TO PREVENT INFECTION - SO NO TUB BATHS, POOLS, HOT TUBS, DISHES...ETC *ANY SIGNS OF BLEEDING (HARDNESS, SWELLING, OR EXCESSIVE BRUISING) HOLD DIRECT PRESSURE ON YOUR PUNCTURE SITE AND COME TO THE NEAREST EMERGENCY ROOM TO GET YOUR PUNCTURE SITE LOOKED AT - DO NOT DRIVE YOURSELF! EITHER CALL EMS OR HAVE SOMEONE DRIVE YOU! Discharge Disposition: HOME SELF-CARE
== END 2022-09-21 10:03 | disposition home or self-care (01) ==
LOC: CATHCVL 08:59 → 6NMEDSUR 14:30 → CATHCVL 09-21 10:03
PROVIDERS: ATTEND Internal Medicine Interventional Cardiology
DX: I25.10 Atherosclerotic heart disease of native coronary artery without angina pectoris (principal); I34.0 Nonrheumatic mitral (valve) insufficiency; I48.0 Paroxysmal atrial fibrillation; I10 Essential (primary) hypertension; I42.8 Other cardiomyopathies; Z79.01 Long term (current) use of anticoagulants; Z79.02 Long term (current) use of antithrombotics/antiplatelets; Z79.82 Long term (current) use of aspirin; Z79.899 Other long term (current) drug therapy; Z88.6 Allergy status to analgesic agent; Z88.8 Allergy status to other drugs, medicaments and biological substances
CPT/HCPCS: 92978; 99152; 99153; 80048; 82565; 85025; C9600; C1887; C1769 ×2; C1894; C1725 ×2; C1753; C1874; J2250; J2001; J1644; Q9967

== ENCOUNTER 2023-11-24 13:39 | Day surgery (SDC) | payer MEDICARE ==
[2023-11-22 10:46] VITALS: BMI 31.6
[2023-11-24] MEDS: IV FLUID CONTINUATION 1,000 ML IV ONE ×2 (14:18→15:44)
[2023-11-24 14:25] VITALS: TEMP 97.1
[2023-11-24] MEDS: LACTATED RINGERS 1,000 ML IV SCH (14:29)
[2023-11-24] MEDS ORDERED: PROPOFOL 10 MG/ML 20 ML VIAL IV ONE (15:58)
--- NOTE | 2023-11-24 16:15 | P.PCN ---
Date of Procedure: 11/24/23 Procedure(s) Performed: BRIEF HISTORY: Patient is a 77-year-old pleasant white male scheduled for an elective colonoscopy as a part of screening for colon cancer and family history of colon cancer. His brother was diagnosed with colon cancer at age 59 . PROCEDURE PERFORMED: Colonoscopy with snare polypectomy. PREOPERATIVE DIAGNOSIS: Screening for colon cancer and family history of colon cancer. IV sedation per Anesthesia. PROCEDURE: After informed consent was obtained, the patient, was brought into the endoscopy unit. IV sedation was administered by Anesthesia under continuous monitoring. Digital rectal examination was normal. Initially the Olympus CF-160 flexible video colonoscope was then inserted in the rectum, gradually advanced into the cecum without any difficulty. Careful examination was performed as the scope was gradually being withdrawn. Ileocecal valve and the appendiceal orifice were visualized and appeared normal. Prep was excellent. Mucosa of the cecum, appeared normal. In the ascending colon there was a 7 mm and 1 cm polyp removed by snare polypectomy. In the transverse colon there was a 5 mm and 1 cm polyp removed by snare polypectomy. Rest of the ascending colon, transverse colon, descending colon, sigmoid colon, and rectum appeared normal. Retroflexion was p erformed in the rectum and no lesions were seen. The patient tolerated the procedure well. IMPRESSION: 7 mm and 1 cm ascending colon polyp status post polypectomy 5 mm and 1 cm transverse colon polyp status post polypectomy RECOMMENDATIONS: Findings of this examination were discussed with the patient as well as his family. He was advised to follow-up with the biopsy results. If the biopsy reveals adenoma he can have repeat colonoscopy in 3 years.
[2023-11-24 16:21] VITALS: BP 95/60; PULSE 82; RESP 16
== END 2023-11-24 17:06 | disposition home or self-care (01) ==
LOC: ORWHC2ENDO 13:39
PROVIDERS: ATTEND Internal Medicine Gastroenterology
DX: Z12.11 Encounter for screening for malignant neoplasm of colon (principal); D12.3 Benign neoplasm of transverse colon; Z80.0 Family history of malignant neoplasm of digestive organs
CPT/HCPCS: 88305; 45385; J2704